=== PATIENT | female | born 2000 | race Caucasian/White ===

== ENCOUNTER 2023-12-18 12:22 | Emergency (ER) | payer SELFPAY ==
[~2023-12-18] VITALS: Ht 160 cm; Wt 71.7 kg
[2023-12-18] MEDS: NACL 0.9% 1,000 ML IV ONE (12:48)
[2023-12-18] MEDS: ONDANSETRON 4 MG/2 ML VIAL IVP ONE (12:52)
[2023-12-18] MEDS: MORPHINE SULFATE 4 MG/ML SYR IVP ONE (12:58)
[2023-12-18 12:59] LABS: BASOPHILS # (AUTO) 0.1 K/uL (0.00-0.22); BASOPHILS % (AUTO) 0.6 % (0.0-2.0); EOSINOPHILS # (AUTO) 0.3 K/uL (0-0.4); EOSINOPHILS % (AUTO) 3.5 % (0.0-4.0); HEMATOCRIT 38.3 % (36-48); HEMOGLOBIN 13.2 g/dL (12.0-16.0); LYMPHOCYTES # (AUTO) 2.5 K/uL (2.5-16.5); LYMPHOCYTES % (AUTO) 25.8 % (20.5-51.1); MEAN CORPUSCULAR HEMOGLOBIN 31 pg (27-31); MEAN CORPUSCULAR HGB CONC 34 g/dL (33-37); MEAN CORPUSCULAR VOLUME 89.5 fL (80-94); MONOCYTES # (AUTO) 0.3 K/uL (0.8-1.0); MONOCYTES % (AUTO) 3.5 % (1.7-9.3); NEUTROPHILS # (AUTO) 6.3 K/uL (1.8-7.7); NEUTROPHILS % (AUTO) 66.6 % (42.2-75.2); PLATELET COUNT (AUTO) 342 K/uL (140-450); RED BLOOD CELL COUNT(AUTO) 4.28 MIL/uL (4.20-5.40); RED CELL DISTRIBUTION WIDTH 14.9 % (11.6-13.7); WHITE BLOOD COUNT (AUTO) 9.5 K/uL (4.8-10.8)
[2023-12-18 13:02] VITALS: BP 115/69; PULSE 74; RESP 16; TEMP 97.1; O2SAT 100
[2023-12-18 13:09] LABS: ANION GAP 15.7 (8-16); CALCIUM 9.4 mg/dL (8.5-10.1); CARBON DIOXIDE 21.9 mmol/L (21-32); CREATININE 0.7 mg/dL (0.6-1.3); POTASSIUM 3.6 mmol/L (3.5-5.1)
[2023-12-18 13:18] LABS: ALANINE AMINOTRANSFERASE 16 U/L (12-78); ALBUMIN 3.8 g/dL (3.4-5.0); ALKALINE PHOSPHATASE 94 U/L (50-136); ASPARTATE AMINOTRANSFERASE 19 U/L (15-37); BILIRUBIN,DIRECT 0.1 mg/dL (0.0-0.3); LIPASE 29 U/L (16-77); TOTAL BILIRUBIN 0.3 mg/dL (0.0-1.0); TOTAL PROTEIN, SERUM 7.7 g/dL (6.4-8.2)
[2023-12-18 13:20] LABS: INR 0.94 (0.8-1.2); PARTIAL THROMBOPLASTIN TIME 27.6 secs (22-35.6); PROTHROMBIN TIME 9.9 secs (10.8-13.4)
[2023-12-18] MEDS ORDERED: IBUP-2218 PO (15:48)
[2023-12-18] MEDS ORDERED: ACET-10509 PO (15:48)
[2023-12-18] MEDS ORDERED: ONDA-188 SL (15:48)
[2023-12-18 16:39] VITALS: BP 105/58; PULSE 65; RESP 16; O2SAT 98
== END 2023-12-18 16:36 | disposition home or self-care (01) ==
LOC: MED 12:22
DX: A08.4 Viral intestinal infection, unspecified (principal); R55 Syncope and collapse; Z79.899 Other long term (current) drug therapy
CPT/HCPCS: 36415; 71045; 71275; 74174; 80048; 80076; 81025; 83605; 83690; 83880; 84484; 84703; 85025; 85610; 85730; 87040; 93005; 96361; 96374; 96375; 99285; J2270; J2405; J7030; Q9967